=== PATIENT | female | born 1965 | race Caucasian/White ===

== ENCOUNTER → 2017-10-18 21:41 | Outpatient (CLI) | payer BC, SELFPAY ==
--- NOTE | 2017-10-18 21:52 | RAD_ITS ---
STUDY: X-RAY CHEST REASON FOR EXAM: Female, 52 years old. History of pneumothorax. History of lung nodules. TECHNIQUE: PA and lateral views of the chest. COMPARISON: 01/17/2016. FINDINGS: There are hypoventilatory changes. There again are prominent interstitial markings in the lower lungs essentially unchanged since prior examination. No new infiltrate is seen. There is no demonstrated pleural abnormality. Normal size heart. Normal mediastinum and [place]. Normal visualized pulmonary arteries. There is mild atherosclerotic tortuosity of the aortic arch and descending thoracic aorta. Normal visualized thoracic spine. Normal visualized ribs, clavicles, and shoulders. There is no demonstrated abnormality of the visualized soft tissue structures of the upper abdomen. RAD/Chest PA and Lateral IMPRESSION: Prominent interstitial markings appear to be chronic. No new infiltrate is seen. Electronically Signed: Duglas Dominique MD at 15:18 EST Tel , Service support ,
== END ==
PROVIDERS: Family Provider Family Medicine; PCP Family Medicine; Visit Provider Internal Medicine Hematology & Oncology
DX: J93.9 Pneumothorax, unspecified (principal)
CPT/HCPCS: 71046

== ENCOUNTER → 2017-10-29 10:30 | Outpatient (CLI) | payer BC, SELFPAY ==
--- NOTE | 2017-10-29 10:42 | CT_ITS ---
STUDY: CT CHEST WITH CONTRAST REASON FOR EXAM: Female, 52 years old. The patient has a history of colon cancer. RADIATION DOSAGE (If Supplied By Facility): CTDIvol = ( 14.17 ) mGy, DLP = ( 345.76 ) mGycm TECHNIQUE: Transaxial imaging was performed following intravenous administration of 100 ml of Isovue 300 contrast material. Multiplanar coronal and sagittal images were reformatted. Individualized dose optimization techniques were used for this CT. COMPARISON: None. FINDINGS: A right-sided portacatheter is seen. There is a 8.3 mm noncalcified nodule in the lateral peripheral aspect of the right upper lobe. There is also evidence of a 4.6 mm noncalcified nodule seen in the superior segment of the right lower lobe as seen on axial image #58. There is a 4.6 mm noncalcified nodule in the anterior aspect of the right upper lobe as seen on axial image #59. 7.3 mm noncalcified nodule in the posterior right lung apex as well as a 3.9 mm noncalcified nodule in the anterior right apex as seen on axial image #18. Mild degree of increased linear markings at the lung bases suggestive of a linear scarring and/or atelectasis. There is no demonstrated pleural abnormality. Normal heart and pericardium. Normal mediastinum. Normal hilar regions. Normal enhanced pulmonary arteries. Normal aorta arch and descending thoracic aorta. There are mild degenerative changes of the thoracic spine. Fatty infiltration of the liver. Small gallstones along the dependent portion of the gallbladder lumen. CT/Chest WITH Contrast IMPRESSION: Multiple noncalcified right pulmonary nodules. Electronically Signed: Tim Boss MD at 12:17 EDT Tel [phone], Service support ,
== END ==
PROVIDERS: Family Provider Family Medicine; PCP Family Medicine; Visit Provider Internal Medicine Hematology & Oncology
DX: C18.2 Malignant neoplasm of ascending colon (principal); C77.9 Secondary and unspecified malignant neoplasm of lymph node, unspecified; C78.00 Secondary malignant neoplasm of unspecified lung
CPT/HCPCS: 71260; Q9967

== ENCOUNTER 2017-12-23 14:54 | Observation (INO) | payer BC, SELFPAY ==
[2017-12-23 14:56] VITALS: BP 159/96; PULSE 103; RESP 18; TEMP 36.6; O2SAT 98; BMI 28.5
--- NOTE | 2017-12-23 15:05 | CT_ITS ---
STUDY: CT ABDOMEN AND PELVIS WITHOUT CONTRAST REASON FOR EXAM: Female, 52 years old. Right flank pain RADIATION DOSAGE (If Supplied By Facility): CTDIvol = ( 8.19 ) mGy, DLP = ( 411.18 ) mGycm TECHNIQUE: Transaxial images were obtained from the dome of the diaphragm to the symphysis pubis without oral contrast, and without intravenous contrast. Sagittal and coronal images were reconstructed. Individualized dose optimization techniques were used for this CT. COMPARISON: 10/07/2017 FINDINGS: Evaluation of the abdominal viscera is limited in the absence of intravenous contrast. The visualized lung bases are clear. The visualized portions of the heart and pericardium are within normal limits. There are small calcified gallstones present. The liver is low in density, consistent with fatty infiltration. The spleen is normal in size. The pancreas demonstrates an unremarkable unenhanced appearance. The adrenal glands are within normal limits. There are no left-sided stones. There is no left-sided hydronephrosis. There is a stable 2.2 x 1.5 cm stone at the right ureteropelvic junction with stable right hydronephrosis. There are stable additional subcentimeter stones in the collecting system of the right kidney. There are no stones in the right ureter. Normal visualized stomach. There is no bowel obstruction or inflammation. The patient is status post right hemicolectomy. The aorta is normal in caliber. There is no abdominal or pelvic free air, free fluid, fluid collection or lymphadenopathy. There are no destructive osseous lesions. CT/Abdomen/Pelvis without Cont IMPRESSION: Stable 2.2 x 1.5 cm stone at the right ureteropelvic junction with stable mild right hydronephrosis. Stable subcentimeter nonobstructing right collecting system stones. No right ureteral stones. No left-sided stones. No left-sided hydronephrosis. Fatty liver. Gallstones. Electronically Signed: Mark Gant, at 16:18 EDT Tel , Service support ,
--- NOTE | 2017-12-23 15:05 | ED.VISSUMM ---
- ER Visit Summary Date of Service: 12/23/17 Chief Complaint: Right flank pain History of Present Illness: The patient is a 52 F presents to the emergency department with right-sided flank pain. Patient has a history of recurrent kidney stone. 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 She is currently undergoing chemotherapy with Dr. Nieto. Her last treatment was Saturday of last week. She has not had fever or chills. She states that the pain started suddenly this morning. It is in the right flank and radiates to her right lower quadrant. She has had a difficult time urinating. She has had multiple bouts of vomiting. She states this feels very similar to her stones before. She does not think she has ever required stenting. She has had no other change in medications recently. Physical Examination: Vital signs reviewed General: Well-nourished, well-developed Head: Normocephalic, atraumatic Eyes: Pupils equal and reactive, extraocular muscles intact Neck, supple, no lymphadenopathy Heart: Regular rate and rhythm Respiratory: No distress, clear bilaterally Abdomen: Soft, nontender, nondistended, no peritoneal signs Back: Nontender Extremities: Nontender, no edema, no cords Skin: Normal color no rash Neuro: Alert and oriented, no focal or lateralizing deficits Test Results: [] Emergency Department Course and Treatment: The patient presents with signs and symptoms of urolithiasis. Her port was accessed. She was given fluids, Toradol, morphine. She had complete relief of her pain. Screening labs do show a mild leukopenia, but she is not neutropenic to the point of worry for neutropenic fever. Patient underwent CT which does show a large stone with mild hydro-. Her urine is also infected. I did discuss plan of care with Dr. Tinsley. He is very hesitant to treat this outpatient given the patient's immunosuppression on chemotherapy with evidence of infected stone. Patient will be started on IV antibiotics. She will be admitted, made n.p.o. overnight, and he is going to attempt to set her up for stent placement tomorrow. Patient will be discussed with the hospitalist for admission. Treatment Plan: [] Disposition: Admission Impression: 1. Obstructing urolithiasis with urinary tract infection 2. History of immunosuppression on chemotherapy This note was generated with [employer] software. It may contain incorrect words, spelling, and punctuation that were not noted in review of the chart prior to signing ED Disposition - Plan for ED Patient: Chief Complaint: Flank Pain Referrals: Jessa Chaudhry MD [Primary Care Provider] -
[2017-12-23] MEDS: 0.9% Normal Saline 1,000 ML 250 ML IV (15:35)
[2017-12-23] MEDS: Ondansetron 4 MG/2 ML Vial IV (15:35)
[2017-12-23] MEDS: Morphine 4 MG/ML Syringe IV ×2 (15:35→22:35)
[2017-12-23] MEDS: Ketorolac 30 MG/ML Syringe IV (15:35)
[2017-12-23 15:47] LABS: Absolute Lymphocyte Count 1.12 X10^3/ul (0.83-4.51); Absolute Neutrophil Count 0.8 X10^3/uL (2.0-7.7); Basophil# 0.02 X10^3/uL; Basophil% 0.9 % (0-1); Eosinophil# 0.03 X10^3/uL; Eosinophils% 1.4 % (0-5); Hematocrit 45.2 % (37-47); Hemoglobin 15.1 g/dl (12.0-15.0); Lymphocyte # 1.12 X10^3/ul (4.0); Lymphocyte % 51.6 % (19-41); Mean Corp Hgb Conc 33.4 g/gl (32-36); Mean Corpuscular Hgb 30.9 pg (27.0-32.0); Mean Corpuscular Volume 92.4 fL (81-99); Mean Platelet Vol. 10.5 fl (6.2-12.0); Monocyte# 0.18 X10^3/uL; Monocyte% 8.3 % (0-10); Neutrophil # 0.82 X10^3/uL (2.7-7.7); Neutrophil % 37.8 % (47-70); Platelet Count 114 K/mm3 (150-450); RBC Distribution Width CV 15.5 % (11.6-14.6); RBC Distribution Width SD 50.5 fl (35.1-43.9); Red Blood Count 4.89 M/mm3 (4.2-5.4); White Blood Count 2.2 K/mm3 (4.4-11.0)
[2017-12-23 15:49] LABS: POSITIVE COUNT NO; POSITIVE MORPHOLOGY NO
[2017-12-23 15:50] LABS: Differential Indicated SCAN CRITERIA MET; POSITIVE DIFFERENTIAL YES
[2017-12-23 15:53] LABS: Anion Gap 7 (5-15); BUN 23 mg/dL (7-18); BUN/Creat Ratio 24.8 RATIO (10-20); Calcium,Total 8.6 mg/dL (8.5-10.1); Chloride 107 mmol/L (98-107); Creatinine, Serum 0.93 mg/dL (0.55-1.02); EST Glomerular Filtration Rate 67 mL/min (>60); Est Glom Filt Rate - Afr Amer 81 mL/min (>60); Estimated Creatinine Clearance 52.18 ml/min; Glucose 139 mg/dL (74-106); Potassium 3.8 mmol/L (3.5-5.1); Sodium Level 141 mmol/L (136-145)
[2017-12-23 16:16] LABS: Anisocytosis RARE; Platelet Estimate SLT DEC (ADEQ)
[2017-12-23 16:17] LABS: Macrocytosis RARE
[2017-12-23 16:41] LABS: Color, Urine Amber (Yellow); Glucose, Dipstick Normal (Normal); Ketone-Dipstick 15 mg/dl (Negative); Leukocyte Esterase-Dipstick 500 /ul (Negative); Nitrite-Dipstick Positive (Negative); Occult Blood-Urine 250 /ul (Negative); Protein-Dipstick 500 mg/dl (Negative); Specific Gravity, Urine 1.025 (1.002-1.030); Urine Clarity Cloudy (Clear); Urine Urobilinogen 4 mg/dl (Normal)
[2017-12-23 16:52] LABS: Urine Bilirubin Dipstick 3 mg/dL (Negative)
[2017-12-23 16:54] LABS: Mucous, Urine 4+ /hpf (<or=2+); Red Blood Cells-Urine 50-100 SEEN /hpf (0-5); White Blood Cells 50-100 SEEN /hpf (0-5)
[2017-12-23 16:56] LABS: Bacteria 2+ /hpf (None Seen); Squamous Epithelial Cells - UA 5-10 SEEN /hpf (5-10); Transitional Epithelial - Ur 0-5 SEEN /hpf (0-5)
--- NOTE | 2017-12-23 17:04 | ED.RN ---
DR OLMAN JASMINE FOR DR ESPAÑA
[2017-12-23 17:05] VITALS: RESP 16
[2017-12-23] MEDS: Ceftriaxone 1 GM/50 ML BAG IV (17:12)
[2017-12-23 18:05] VITALS: BP 141/88; PULSE 95; RESP 16; TEMP 36.7; O2SAT 97
[2017-12-23 18:14] VITALS: BMI 28.6
--- NOTE | 2017-12-23 18:23 | PCM.HP.STD ---
Problem List (1) Ureteral stone with hydronephrosis Status: Acute (2) UTI (urinary tract infection) Status: Acute (3) Malignant neoplasm of right colon Status: Chronic (4) Nephrolithiasis Status: Chronic History of Present Illness Date of Admission: 12/23/17 Chief Complaint: abominal pain The patient is a 52 year old F who was in her normal state of health today up until about 8 AM. Patient experienced acute right flank and back tenderness. Patient has had bouts like this before related with some kidney stones but usually resolve spontaneously but this was much worse. Patient presented to the emergency room and underwent a CAT scan. CAT scan showed a 2.2 x 1.5 cm stone at the right UPJ with stable mild right hydronephrosis. Also stable subcentimeter nonobstructing right renal collecting system stones. Patient received Toradol and morphine and her pain is much improved at this time. Patient also had an abnormal urinalysis concerning for urinary tract infection and was started on Rocephin. [] Past Medical History Past Medical History (Chronic Problems): Chronic Problems (Last Reviewed 12/17/17 @ 08:56 by Valery Lauren) Malignant neoplasm of right colon (Chronic) Regional lymph node metastasis present (Chronic) Lung metastases (Chronic) Nephrolithiasis (Chronic) Anxiety (Chronic) Obesity (BMI 30.0-34.9) (Chronic) Allergies No Known Allergies Allergy (Verified 12/23/17 14:56) Home Medications: Ambulatory Orders Medication Instructions Recorded Ibuprofen [Advil] 400 mg PO UD PRN 10/17/17 Lorazepam [Ativan] 0.5 mg PO DAILY PRN PRN 10/17/17 Lidocaine/Prilocaine HCl [Emla 1 applicatio TOPICAL X1 PRN #1 tube 10/29/17 Cream W/Tegaderm] Prochlorperazine Maleate 10 mg PO Q6H PRN PRN 10 Days #30 10/29/17 tab Ondansetron HCl [Zofran] 4 mg PO Q8H PRN PRN 10 Days #30 tab 11/21/17 Surgical History: - - c/s, colon resection, port. 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 Denies: Dysuria Musculoskeletal: Denies: Joint Pain, Joint Tenderness Skin: Denies: Rash, Wounds Neurological: Denies: Numbness, Tingling, Focal weakness Psychiatric: Denies: Anxiety, Depression, Homicidal Ideations, Suicidal Ideations Hematologic/ Lymphatic: Denies: Easy Bruising, Easy Bleeding, Hx of blood clot VTE Information - Inpt Only VTE Present on Admission: No VTE Pharm Prophylaxis ordered?: Yes Patient Problems: Active and Suspected Problems (Last Reviewed 12/17/17 @ 08:56 by Valery Lauren) Ureteral stone with hydronephrosis (Acute) UTI (urinary tract infection) (Acute) - Physical Exam General: Alert, Cooperative, No apparent distress HEENT: Atraumatic, Normocephalic Neck: No Nodes, Thyroid Normal Size and Texture Lungs: Clear to auscultation, Normal air movement, No rhonchi, No wheeze Cardiovascular: Regular rate, Regular Rhythm, Normal S1, Normal S2, No murmurs Abdomen: Bowel Sounds Present, Soft, Non Tender, Non-Distended, No Hepato-splenomegaly, - - no CVA tenderness. Extremities: No edema, No Calf Tenderness Skin: No rashes, No breakdown Psych/Mental Status: Normal Affect, Appropriate Vital Signs Temp Pulse Resp BP Pulse Ox 36.7 C 95 16 141/88 H 97 12/23/17 18:05 12/23/17 18:05 12/23/17 18:05 12/23/17 18:05 12/23/17 18:05 Oxygen Delivery Method Room Air Weight: 68.6 kg Body Mass Index (BMI) 28.5 Laboratory Tests Past 24 Hrs 12/23/17 12/23/17 12/23/17 15:32 15:32 16:30 WBC 2.2 L RBC 4.89 Hgb 15.1 H Hct 45.2 MCV 92.4 MCH 30.9 MCHC 33.4 RDW 15.5 H RDW Differential 50.5 H Plt Count 114 L MPV 10.5 Immature Gran % (Auto) 0.000 Neut % (Auto) 37.8 L Lymph % (Auto) 51.6 H [place] % (Auto) 8.3 Eos % (Auto) 1.4 Baso % (Auto) 0.9 Absolute Neuts (auto) 0.8 L Absolute Lymphs (auto) 1.12 Total Counted Not Reportable Differential Comment SEE COMMENT Diff Path Review May foll Platelet Estimate SLT DEC Anisocytosis RARE Macrocytosis RARE Sodium 141 Potassium 3.8 Chloride 107 Carbon Dioxide 27.0 Anion Gap 7 BUN 23 H Creatinine 0.93 Estim Creat Clear Calc 52.18 Est GFR (MDRD) Af Amer 81 Est GFR (MDRD) Non-Af 67 BUN/Creatinine Ratio 24.8 H Glucose 139 H Calcium 8.6 Urine Color Brenda Urine Clarity Cloudy Urine pH 5.0 Ur Specific [place] 1.025 Urine Protein 500 H Urine Glucose (UA) Normal Urine Ketones 15 H Urine Occult Blood 250 H Urine Nitrite Positive H Urine Bilirubin 3 H Urine Urobilinogen 4 H Ur Leukocyte Esterase 500 H Urine RBC 50-100 SEEN Urine WBC 50-100 SEEN Ur Squamous Epith Cells 5-10 SEEN Ur Transition Epith Cell 0-5 SEEN Urine Bacteria 2+ Urine Mucus 4+ Assessment/Plan Active and Suspected Problems (Last Reviewed 12/17/17 @ 08:56 by Valery Lauren) Ureteral stone with hydronephrosis (Acute) UTI (urinary tract infection) (Acute) 1. Right ureteral pelvic junction stone Measures 2.2 x 1.5 cm Urology has been contacted and plan is for the patient to have a lithotripsy performed on the . pain control in the meantime 2. UTI Continue with Rocephin Follow-up urine culture 3. DVT prophylaxis with Lovenox 4. Stage IV colon cancer With lung metastasis Patient to follow-up with oncology as outpatient. Discussed with the patient's at bedside. Anticipate short hospitalization. Patient will be put under observation primarily for the kidney stone. Code Visit OBSV E&M: 18321 Initial observation care L2
--- NOTE | 2017-12-23 18:29 | HP.PCM_ITS ---
Problem List (1) Ureteral stone with hydronephrosis Status: Acute (2) UTI (urinary tract infection) Status: Acute (3) Malignant neoplasm of right colon Status: Chronic (4) Nephrolithiasis Status: Chronic History of Present Illness Date of Admission: 12/23/17 Chief Complaint: abominal pain The patient is a 52 year old F who was in her normal state of health today up until about 8 AM. Patient experienced acute right flank and back tenderness. Patient has had bouts like this before related with some kidney stones but usually resolve spontaneously but this was much worse. Patient presented to the emergency room and underwent a CAT scan. CAT scan showed a 2.2 x 1.5 cm stone at the right UPJ with stable mild right hydronephrosis. Also stable subcentimeter nonobstructing right renal collecting system stones. Patient received Toradol and morphine and her pain is much improved at this time. Patient also had an abnormal urinalysis concerning for urinary tract infection and was started on Rocephin. [] Past Medical History Past Medical History (Chronic Problems): Chronic Problems (Last Reviewed 12/17/17 @ 08:56 by Valery Lauren) Malignant neoplasm of right colon (Chronic) Regional lymph node metastasis present (Chronic) Lung metastases (Chronic) Nephrolithiasis (Chronic) Anxiety (Chronic) Obesity (BMI 30.0-34.9) (Chronic) Allergies No Known Allergies Allergy (Verified 12/23/17 14:56) Home Medications: Ambulatory Orders Medication Instructions Recorded Ibuprofen [Advil] 400 mg PO UD PRN 10/17/17 Lorazepam [Ativan] 0.5 mg PO DAILY PRN PRN 10/17/17 Lidocaine/Prilocaine HCl [Emla 1 applicatio TOPICAL X1 PRN #1 tube 10/29/17 Cream W/Tegaderm] Prochlorperazine Maleate 10 mg PO Q6H PRN PRN 10 Days #30 10/29/17 tab Ondansetron HCl [Zofran] 4 mg PO Q8H PRN PRN 10 Days #30 tab 11/21/17 Surgical History: - - c/s, colon resection, port. 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 Denies: Dysuria Musculoskeletal: Denies: Joint Pain, Joint Tenderness Skin: Denies: Rash, Wounds Neurological: Denies: Numbness, Tingling, Focal weakness Psychiatric: Denies: Anxiety, Depression, Homicidal Ideations, Suicidal Ideations Hematologic/ Lymphatic: Denies: Easy Bruising, Easy Bleeding, Hx of blood clot VTE Information - Inpt Only VTE Present on Admission: No VTE Pharm Prophylaxis ordered?: Yes Patient Problems: Active and Suspected Problems (Last Reviewed 12/17/17 @ 08:56 by Valery Lauren) Ureteral stone with hydronephrosis (Acute) UTI (urinary tract infection) (Acute) - Physical Exam General: Alert, Cooperative, No apparent distress HEENT: Atraumatic, Normocephalic Neck: No Nodes, Thyroid Normal Size and Texture Lungs: Clear to auscultation, Normal air movement, No rhonchi, No wheeze Cardiovascular: Regular rate, Regular Rhythm, Normal S1, Normal S2, No murmurs Abdomen: Bowel Sounds Present, Soft, Non Tender, Non-Distended, No Hepato- splenomegaly, - - no CVA tenderness. Extremities: No edema, No Calf Tenderness Skin: No rashes, No breakdown Psych/Mental Status: Normal Affect, Appropriate Vital Signs Temp Pulse Resp BP Pulse Ox 36.7 C 95 16 141/88 H 97 12/23/17 18:05 12/23/17 18:05 12/23/17 18:05 12/23/17 18:05 12/23/17 18:05 Oxygen Delivery Method Room Air Weight: 68.6 kg Body Mass Index (BMI) 28.5 Laboratory Tests Past 24 Hrs 12/23/17 12/23/17 12/23/17 15:32 15:32 16:30 WBC 2.2 L RBC 4.89 Hgb 15.1 H Hct 45.2 MCV 92.4 MCH 30.9 MCHC 33.4 RDW 15.5 H RDW Differential 50.5 H Plt Count 114 L MPV 10.5 Immature Gran % (Auto) 0.000 Neut % (Auto) 37.8 L Lymph % (Auto) 51.6 H [place] % (Auto) 8.3 Eos % (Auto) 1.4 Baso % (Auto) 0.9 Absolute Neuts (auto) 0.8 L Absolute Lymphs (auto) 1.12 Total Counted Not Reportable Differential Comment SEE COMMENT Diff Path Review May foll Platelet Estimate SLT DEC Anisocytosis RARE Macrocytosis RARE Sodium 141 Potassium 3.8 Chloride 107 Carbon Dioxide 27.0 Anion Gap 7 BUN 23 H Creatinine 0.93 Estim Creat Clear Calc 52.18 Est GFR (MDRD) Af Amer 81 Est GFR (MDRD) Non-Af 67 BUN/Creatinine Ratio 24.8 H Glucose 139 H Calcium 8.6 Urine Color Brenda Urine Clarity Cloudy Urine pH 5.0 Ur Specific [place] 1.025 Urine Protein 500 H Urine Glucose (UA) Normal Urine Ketones 15 H Urine Occult Blood 250 H Urine Nitrite Positive H Urine Bilirubin 3 H Urine Urobilinogen 4 H Ur Leukocyte Esterase 500 H Urine RBC 50-100 SEEN Urine WBC 50-100 SEEN Ur Squamous Epith Cells 5-10 SEEN Ur Transition Epith Cell 0-5 SEEN Urine Bacteria 2+ Urine Mucus 4+ Assessment/Plan Active and Suspected Problems (Last Reviewed 12/17/17 @ 08:56 by Valery Lauren) Ureteral stone with hydronephrosis (Acute) UTI (urinary tract infection) (Acute) 1. Right ureteral pelvic junction stone * Measures 2.2 x 1.5 cm * Urology has been contacted and plan is for the patient to have a lithotripsy performed on the . * pain control in the meantime 2. UTI * Continue with Rocephin * Follow-up urine culture 3. DVT prophylaxis with Lovenox 4. Stage IV colon cancer * With lung metastasis * Patient to follow-up with oncology as outpatient. Discussed with the patient's at bedside. Anticipate short hospitalization. Patient will be put under observation primarily for the kidney stone. Code Visit OBSV E&M: 55087 Initial observation care L2
[2017-12-23 18:50] VITALS: BMI 28.8
[2017-12-23] MEDS: 0.9% Normal Saline 1,000 ML 100 ML IV (19:28)
[2017-12-23] MEDS: Tamsulosin HCl 0.4 MG Capsule 0.8 MG PO (19:29)
[2017-12-23 21:00] VITALS: BP 122/74; PULSE 75; RESP 16; TEMP 36.4; O2SAT 97
[2017-12-24] VITALS (9 sets, daily range): BP systolic 102–135; BP diastolic 65–75; PULSE 57–78; RESP 16–18; TEMP 36.4–36.8; O2SAT 89–98; BMI 28.8
[2017-12-24] MEDS: 0.9% Normal Saline 1,000 ML 100 ML IV (03:04)
[2017-12-24 05:48] LABS: Absolute Lymphocyte Count 1.08 X10^3/ul (0.83-4.51); Absolute Neutrophil Count 1.1 X10^3/uL (2.0-7.7); Basophil# 0.02 X10^3/uL; Basophil% 0.8 % (0-1); Eosinophil# 0.06 X10^3/uL; Eosinophils% 2.5 % (0-5); Hematocrit 40.5 % (37-47); Hemoglobin 13.3 g/dl (12.0-15.0); Lymphocyte # 1.08 X10^3/ul (4.0); Lymphocyte % 45.4 % (19-41); Mean Corp Hgb Conc 32.8 g/gl (32-36); Mean Corpuscular Hgb 30.9 pg (27.0-32.0); Mean Corpuscular Volume 94.2 fL (81-99); Mean Platelet Vol. 10.6 fl (6.2-12.0); Monocyte# 0.15 X10^3/uL; Monocyte% 6.3 % (0-10); Neutrophil # 1.06 X10^3/uL (2.7-7.7); Neutrophil % 44.6 % (47-70); Platelet Count 101 K/mm3 (150-450); RBC Distribution Width CV 15.8 % (11.6-14.6); RBC Distribution Width SD 52.2 fl (35.1-43.9); White Blood Count 2.4 K/mm3 (4.4-11.0)
[2017-12-24 05:51] LABS: POSITIVE COUNT NO; POSITIVE DIFFERENTIAL NO; POSITIVE MORPHOLOGY NO
--- NOTE | 2017-12-24 06:00 | EKG12_ITS ---
Test Reason : PRE-OP Blood Pressure : / mmHG Vent. Rate : 080 BPM Atrial Rate : 080 BPM P-R Int : 122 ms QRS Dur : 078 ms QT Int : 398 ms P-R-T Axes : 041 027 042 degrees QTc Int : 459 ms Normal sinus rhythm Normal ECG Confirmed by TOBIAS CHOPRA, HIGINIO ([id number]), graphics editor REY FR[place] ([id number]) on 12/26/2017 12:57:04 PM Referred By: Jessa Chaudhry Confirmed By:HIGINIO COLLADO MD
[2017-12-24 06:11] LABS: Anion Gap 7 (5-15); BUN 17 mg/dL (7-18); BUN/Creat Ratio 25.8 RATIO (10-20); Calcium,Total 7.2 mg/dL (8.5-10.1); Chloride 113 mmol/L (98-107); Creatinine, Serum 0.66 mg/dL (0.55-1.02); EST Glomerular Filtration Rate 99 mL/min (>60); Est Glom Filt Rate - Afr Amer 120 mL/min (>60); Estimated Creatinine Clearance 73.53 ml/min; Glucose 138 mg/dL (74-106); Potassium 3.5 mmol/L (3.5-5.1); Sodium Level 144 mmol/L (136-145)
--- NOTE | 2017-12-24 07:25 | PCM.CONS.U ---
Reason for Consult Date of Consultation: 12/24/17 Reason for Consultation: 2 cm right kidney stone and a urinary tract infection History of Present Illness: The patient is a 52 year old female with a history of colon cancer currently undergoing chemotherapy presented to the emergency room with right flank pain also appears to have a urinary tract infection. Currently she is comfortable but given the large stone and possible that the stone may be infectious stone plan to place a stent to clear the infection before we plan for shockwave lithotripsy. Today the patient was admitted for antibiotics will place a stent if she is clinically doing okay she may be able to go home and within 24 hours. Past Medical History Past Medical History (Chronic Problems): Chronic Problems (Last Reviewed 12/17/17 @ 08:56 by Valery Lauren) Malignant neoplasm of right colon (Chronic) Regional lymph node metastasis present (Chronic) Lung metastases (Chronic) Nephrolithiasis (Chronic) Anxiety (Chronic) Obesity (BMI 30.0-34.9) (Chronic) Allergies No Known Allergies Allergy (Verified 12/23/17 14:56) Home Medications: Ambulatory Orders Medication Instructions Recorded Ibuprofen [Advil] 400 mg PO UD PRN 10/17/17 Lorazepam [Ativan] 0.5 mg PO DAILY PRN PRN 10/17/17 Lidocaine/Prilocaine HCl [Emla 1 applicatio TOPICAL X1 PRN #1 tube 10/29/17 Cream W/Tegaderm] Prochlorperazine Maleate 10 mg PO Q6H PRN PRN 10 Days #30 10/29/17 tab Ondansetron HCl [Zofran] 4 mg PO Q8H PRN PRN 10 Days #30 tab 11/21/17 Surgical History: noncontributory, - - c/s, colon resection, port. 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 Lives: Spouse/ Significant Other Smoking Status: Current every day smoker Tobacco Use: Cigarettes - *Family History Maternal History Items: No pertinent history, - - No colon cancer Paternal History Items: Unknown Review of Systems Constitutional: Reports: Fever HEENT: Denies: Head Aches, Sinus Congestion, Sinus Drainage Cardiovascular: Denies: Chest Pain, Palpitations Respiratory: Denies: Cough, Shortness of breath at rest, Sputum production Gastrointestinal: Reports: Abdominal Pain Genitourinary: Reports: Dysuria Musculoskeletal: Denies: Joint Pain, Joint Tenderness Skin: Denies: Rash, Wounds Neurological: Denies: Numbness, Tingling, Focal weakness Psychiatric: Denies: Anxiety, Depression, Homicidal Ideations, Suicidal Ideations Hematologic/ Lymphatic: Denies: Easy Bruising, Easy Bleeding Physical Exam - Physical Exam Vital Signs Temp 98.0 F 12/24/17 03:00 Pulse 78 12/24/17 03:00 Resp 16 12/24/17 03:00 BP 118/74 12/24/17 03:00 Pulse Ox 94 12/24/17 03:00 Intake & Output 12/22/17 12/23/17 12/24/17 23:59 23:59 23:59 Intake Total 803 / 803 667 / 667 Output Total 100 / 100 100 / 100 Balance 703 / 703 567 / 567 Weight: 69.309 kg Intake: Oral 500 / 500 IV fluid/meds 303 / 303 667 / 667 Output: Urine 100 / 100 100 / 100 General: Alert, Oriented x3 HEENT: Atraumatic Oral: Moist Mucosa, No Gingival or Mucosal Lesions/ Ulcerations Neck: Supple Lungs: Normal air movement Cardiovascular: Regular rate, Regular Rhythm Abdomen: Bowel Sounds Present, Soft Rectal: Exam deferred Extremities: No clubbing, No cyanosis, No edema Skin: No rashes Musculoskeletal: No Tenderness to Palpation of Joints or Extremities Lymphatic: No Cervical, Supraclavicular, or Inguinal Adenopathy Neurological: Cranial nerves II-XII grossly intact Psych/Mental Status: Normal Affect, Appropriate Laboratory Tests Past 24 Hrs 12/24/17 12/24/17 05:25 05:25 WBC 2.4 L RBC 4.30 Hgb 13.3 Hct 40.5 MCV 94.2 MCH 30.9 MCHC 32.8 RDW 15.8 H RDW Differential 52.2 H Plt Count 101 L MPV 10.6 Immature Gran % (Auto) 0.400 Neut % (Auto) 44.6 L Lymph % (Auto) 45.4 H [place] % (Auto) 6.3 Eos % (Auto) 2.5 Baso % (Auto) 0.8 Absolute Neuts (auto) 1.1 L Absolute Lymphs (auto) 1.08 Total Counted Not Reportable Sodium 144 Potassium 3.5 Chloride 113 H Carbon Dioxide 24.0 Anion Gap 7 BUN 17 Creatinine 0.66 Estim Creat Clear Calc 73.53 Est GFR (MDRD) Af Amer 120 Est GFR (MDRD) Non-Af 99 BUN/Creatinine Ratio 25.8 H Glucose 138 H Calcium 7.2 L Assessment/Plan Active and Suspected Problems (Last Reviewed 12/17/17 @ 08:56 by Valery Lauren) Ureteral stone with hydronephrosis (Acute) UTI (urinary tract infection) (Acute) 2 cm right kidney stone plan for cystoscopy right stent placement clear her of the infection with antibiotics then we can plan for outpatient treatment of the stone. Will place a stent today if she is clinically doing okay prior to go home within 24 hours with antibiotics my office a call or for instructions and plan for the surgery.
--- NOTE | 2017-12-24 09:04 | PCM.PN.HOSP ---
Patient Problems: Active and Suspected Problems (Last Reviewed 12/17/17 @ 08:56 by Valery Lauren) Ureteral stone with hydronephrosis (Acute) UTI (urinary tract infection) (Acute) Subjective: Patient was seen and examined. Denies any fever or chills or flank pain. Vitals are stable. No acute events overnight. She is going for a stent at 11 AM. Vitals/I&O's: Vital Signs Temp Pulse Resp BP Pulse Ox 97.7 F L 72 18 113/70 95 12/24/17 08:03 12/24/17 08:03 12/24/17 08:03 12/24/17 08:03 12/24/17 08:03 Oxygen Delivery Method Room Air Weight: 69.309 kg Body Mass Index (BMI) 28.8 Intake and Output for Last 24 Hours 12/22/17 12/23/17 12/24/17 23:59 23:59 23:59 Intake Total 803 / 803 667 / 667 Output Total 100 / 100 100 / 100 Balance 703 / 703 567 / 567 General: Alert, Oriented x3, Cooperative, No apparent distress HEENT: Atraumatic, PERRLA, EOMI, Normocephalic Oral: Moist Mucosa Neck: Supple Lungs: Clear to auscultation, Normal air movement Cardiovascular: Regular rate, Regular Rhythm, Normal S1, Normal S2, No murmurs Abdomen: Bowel Sounds Present, Soft, Non Tender, Non-Distended, No Hepato-splenomegaly Extremities: No edema Skin: No rashes, No breakdown Musculoskeletal: No Tenderness to Palpation of Joints or Extremities Lymphatic: No Cervical, Supraclavicular, or Inguinal Adenopathy Neurological: Cranial nerves II-XII grossly intact, Neuro grossly intact Psych/Mental Status: Normal Affect, Appropriate Laboratory Results 12/24/17 05:25: WBC 2.4 L, RBC 4.30, Hgb 13.3, Hct 40.5, MCV 94.2, MCH 30.9, MCHC 32.8, RDW 15.8 H, RDW Differential 52.2 H, Plt Count 101 L, MPV 10.6, Immature Gran % (Auto) 0.400, Neut % (Auto) 44.6 L, Lymph % (Auto) 45.4 H, [place] % (Auto) 6.3, Eos % (Auto) 2.5, Baso % (Auto) 0.8, Absolute Neuts (auto) 1.1 L, Absolute Lymphs (auto) 1.08, Total Counted Not Reportable 12/24/17 05:25: Sodium 144, Potassium 3.5, Chloride 113 H, Carbon Dioxide 24.0, Anion Gap 7, BUN 17, Creatinine 0.66, Estim Creat Clear Calc 73.53, Est GFR (MDRD) Af Amer 120, Est GFR (MDRD) Non-Af 99, BUN/Creatinine Ratio 25.8 H, Glucose 138 H, Calcium 7.2 L Current Medications Acetaminophen (Tylenol) 650 mg PO Q6H PRN PRN PRN Reason: Mild Pain (scale 0-3)/T>100.7 Enoxaparin Sodium (Lovenox) 40 mg SC DAILY@1000 KAN Last Admin: 12/24/17 07:34 Dose: Not Given Heparin Sodium (Beef Lung) (Heparin 500 Unit/5 Ml (100/Ml)) 500 unit IV UD PRN PRN Reason: HEPARIN FLUSH Sodium Chloride () 1,000 mls @ 100 mls/hr IV .Q10H [facility] Last Admin: 12/24/17 03:04 Dose: 100 mls/hr Ceftriaxone Sodium (Rocephin) 1 gm in 50 mls @ 100 mls/hr IV Q24 [facility] Sodium Chloride () 250 mls @ 15 mls/hr IV .[id number] PRN PRN Reason: SALINE FLUSH Ketorolac Tromethamine (Toradol) 15 mg IV Q6H PRN PRN PRN Reason: PAIN Stop: 12/28/17 18:42 Lorazepam (Ativan) 0.5 mg PO DAILY PRN PRN PRN Reason: ANXIETY Magnesium Hydroxide (Milk Of Magnesia) 30 ml PO DAILY PRN PRN PRN Reason: Constipation Morphine Sulfate () 1 - 2 mg IV Q4H PRN PRN PRN Reason: Moderate Pain (pain scale 4-5) Last Admin: 12/23/17 22:35 Dose: 2 mg Nutritional Formula (Lactose Free) (Ensure Enlive) 120 ml PO 4X/DAY [facility] Last Admin: 12/24/17 07:34 Dose: Not Given Ondansetron HCl (Zofran) 4 mg IV Q8H PRN PRN PRN Reason: Nausea Ondansetron HCl (Zofran Odt) 4 mg PO Q8H PRN PRN PRN Reason: NAUSEA Prochlorperazine Maleate (Compazine Tablet) 10 mg PO Q6H PRN PRN PRN Reason: NAUSEA Sodium Chloride () 10 ml IV UD PRN PRN Reason: R PORT FLUSH Tamsulosin HCl (Flomax) 0.8 mg PO DAILY@1730 [facility] Last Admin: 12/23/17 19:29 Dose: 0.8 mg Medical Necessity - Tobacco Use Smoking Status: Current every day smoker Tobacco Use: Cigarettes Assessment/Plan Active and Suspected Problems (Last Reviewed 12/17/17 @ 08:56 by Valery Lauren) Ureteral stone with hydronephrosis (Acute) UTI (urinary tract infection) (Acute) 52-year-old female with past medical history of metastatic colon cancer, follows with oncology in the outpatient for chemotherapy, last had chemotherapy on Saturday admitted with right flank pain and found to have a 2 cm kidney stone. 1. Right ureteral pelvic junction stone, measuring 2.2 x 1.5 cm, patient will be having a ureteral stent placed today with possible lithotripsy in the outpatient, on IV ceftriaxone, pain control, IV fluids, follow-up on urology recommendations. 2. Acute complicated UTI secondary to right ureteropelvic junction stone with mild hydronephrosis, on IV ceftriaxone, urine cultures are pending, continue on IV ceftriaxone for a total of 7 days to clear the infection in the urine 3. Stage IV colon cancer lung metastasis, following up with oncology 4. DVT prophylaxis with Lovenox 5. Disposition: Possible dc tomorrow. Code Visit Inpatient E&M: 95769 [facility] Hosp L3
[2017-12-24] MEDS: Ceftriaxone 1 GM/50 ML BAG IV (10:21)
--- NOTE | 2017-12-24 10:45 | NURSING ---
report called to Helga in AC. pt completed second chlorahex bath
[2017-12-24 11:37] LABS: Pathologist Review Reviewed
--- NOTE | 2017-12-24 12:19 | PCM.DC.URO ---
Discharge Diet: Light diet - advance as tolerated Discharge Activity: No Restrictions Instructions: Ureteral Stents Allergies/Adverse Reactions: Allergies No Known Allergies Allergy (Verified 12/23/17 14:56) Medications to take at Discharge Ibuprofen [Advil] 400 mg PO UD PRN 10/17/17 Lorazepam [Ativan] 0.5 mg PO DAILY PRN PRN 10/17/17 Lidocaine/Prilocaine HCl [Emla Cream W/Tegaderm] 1 applicatio TOPICAL X1 PRN #1 tube 10/29/17 Prochlorperazine Maleate 10 mg PO Q6H PRN PRN 10 Days #30 tab 10/29/17 Ondansetron HCl [Zofran] 4 mg PO Q8H PRN PRN 10 Days #30 tab 11/21/17 Primary Care Physician: Jessa Chaudhry MD [Primary Care Provider] - Please Follow Up With: Will Tinsley MD When: call office to set up surgery.
[2017-12-24] MEDS: Lidocaine Jelly 2% 20 ML Syringe (URO-JET) 20 APPLIC (12:21)
--- NOTE | 2017-12-24 12:46 | PCM.OPRPT ---
Report of Operation Date of Procedure: 12/24/17 Pre-Operative Diagnosis: Right large renal calculi Post-Operative Diagnosis: same Surgery/Procedure Performed:: Cystoscopy and right stent placement, right retrograde pyelogram Description of Surgical Findings:: 52-year-old female taken back to the operating room after smooth induction of general anesthesia she was placed supine on the table the legs in dorsal lithotomy position, the urethra and vaginal area were prepped and draped in usual sterile fashion, went into the bladder with a 21 Taiwanese rigid cystourethroscope, cannulated the right ureteral orifice with a Glidewire advanced a wire up to the kidney could see the stone in the renal pelvis fairly large stone, I then performed a retrograde pyelogram over Pollack catheter, advanced the wire into the kidney which coiled, with the wire advanced a stent 6 Taiwanese by 24 cm stent stent coiled in the kidney and bladder properly pulled the wire and drained kidney some debris was then coming from the kidney. Patient's anesthetic was reversed and she is taken back to the PACU in good condition. My office will call her to get her set up for surgery to treat the stone. Type of Anesthesia:: General Drains: stent - Admit VTE Documentation VTE Present on Admission: No VTE Mechan Device Prophylaxis: SCD's VTE Pharm Prophylaxis ordered?: No
[2017-12-24] MEDS: 0.9% Normal Saline 1,000 ML 75 ML IV (13:28)
[2017-12-24] MEDS: Acetaminophen 325 MG Tablet 650 MG PO (13:29)
--- NOTE | 2017-12-24 16:15 | CHAPLAIN ---
Type of Pastoral Visit _x__ Initial Visit ___ Follow-up Visit ___ On-call Visit ___ General Patient Visit ___ Spiritual Assessment ___ Family Conference ___ Bereavement ___ Rapid Response ___ Code Blue ___ Other (describe below) Pastoral Care Referral From _x__ Patient ___ Family ___ Nurse ___ Physician ___ Lan Engineer ___ Microcomputer Technician ___ Other (describe below) Sacrament/Intervention ___ Active listening ___ Anointing ___ Hinduism ___ Bereavement ___ Communion ___ Marely exploration ___ ___ Life review _x__ Prayer ___ Reconciliation ___ Sacrament of Sick _x__ Supportive presence ___ Wedding ___ Other (describe below) Pastoral Comments spouse of patient was in the room and did most of the talking; pt was quiet but welcomed a prayer; spouse appeared to have 'nervous expressions verbally'; offered support to both; gave presence and calm words of affirmation
[2017-12-24] MEDS: Tamsulosin HCl 0.4 MG Capsule 0.8 MG PO (17:45)
--- NOTE | 2017-12-24 18:00 | RAD_ITS ---
STUDY: X-RAY - ABDOMEN/PELVIS REASON FOR EXAM: Female, 52 years old. Right ureteral stent TECHNIQUE: Single AP view of the abdomen / pelvis. COMPARISON: None. FINDINGS: Normal visualized lung bases. There is an unremarkable bowel gas pattern. There is a double-J ureteral stent present on the right. Multiple radiopaque nephroliths on the right measuring up to 2.3 cm. No radiodense ureterolithiasis. The visualized liver, spleen and kidneys are grossly normal in size and morphology. Normal soft tissue structures. Normal visualized osseous structures. RAD/Abdomen Single View IMPRESSION: Double-J ureteral stent on the right and multiple uroliths as above Electronically Signed: Terry Parks MD at 21:57 EDT , Service support ,
[2017-12-24] MEDS: Morphine 4 MG/ML Syringe IV (21:34)
[2017-12-25] MEDS: 0.9% Normal Saline 1,000 ML 75 ML IV (02:07)
[2017-12-25 02:15] VITALS: BP 132/79; PULSE 85; RESP 16; TEMP 36.8; O2SAT 95
[2017-12-25 06:14] LABS: Absolute Lymphocyte Count 1.27 X10^3/ul (0.83-4.51); Absolute Neutrophil Count 1.5 X10^3/uL (2.0-7.7); Basophil# 0.02 X10^3/uL; Basophil% 0.6 % (0-1); Eosinophil# 0.11 X10^3/uL; Eosinophils% 3.3 % (0-5); Hematocrit 39.7 % (37-47); Hemoglobin 12.9 g/dl (12.0-15.0); Lymphocyte # 1.27 X10^3/ul (4.0); Lymphocyte % 38.4 % (19-41); Mean Corp Hgb Conc 32.5 g/gl (32-36); Mean Corpuscular Hgb 30.4 pg (27.0-32.0); Mean Corpuscular Volume 93.4 fL (81-99); Mean Platelet Vol. 10.5 fl (6.2-12.0); Monocyte# 0.36 X10^3/uL; Monocyte% 10.9 % (0-10); Neutrophil # 1.54 X10^3/uL (2.7-7.7); Neutrophil % 46.5 % (47-70); Platelet Count 101 K/mm3 (150-450); RBC Distribution Width CV 15.8 % (11.6-14.6); RBC Distribution Width SD 52.8 fl (35.1-43.9); Red Blood Count 4.25 M/mm3 (4.2-5.4); White Blood Count 3.3 K/mm3 (4.4-11.0)
[2017-12-25 06:21] LABS: POSITIVE COUNT NO; POSITIVE DIFFERENTIAL NO; POSITIVE MORPHOLOGY NO
[2017-12-25 06:48] LABS: Anion Gap 7 (5-15); BUN 8 mg/dL (7-18); BUN/Creat Ratio 12.8 RATIO (10-20); Calcium,Total 7.5 mg/dL (8.5-10.1); Chloride 115 mmol/L (98-107); Creatinine, Serum 0.63 mg/dL (0.55-1.02); EST Glomerular Filtration Rate 105 mL/min (>60); Est Glom Filt Rate - Afr Amer 127 mL/min (>60); Estimated Creatinine Clearance 77.03 ml/min; Glucose 100 mg/dL (74-106); Potassium 3.7 mmol/L (3.5-5.1); Sodium Level 145 mmol/L (136-145)
--- NOTE | 2017-12-25 07:44 | PCM.DC ---
- Discharge Diagnoses Current Active Problems: Current Active and Chronic Problems (Last Reviewed 12/17/17 @ 08:56 by Valery Lauren) Ureteral stone with hydronephrosis (Acute) UTI (urinary tract infection) (Acute) Reason(s) for Visit for Discharge Instructions: Right flank pain You will use the following diet at home:: Regular Your food should be the consistency of: Regular Your liquids should be the consistency of: Regular/Thin Discharge Activity: No Restrictions Instructions: Ureteral Stents Additional Instructions: You are encouraged to keep yourself hydrated. Continue to be active. Complete your antibiotics. Let your doctor know or come to the ED if you have fever more than 101F or have worsening flank pain, or blood in your urine. Allergies/Adverse Reactions: Allergies No Known Allergies Allergy (Verified 12/23/17 14:56) Medications to take at Discharge Ibuprofen [Motrin] 400 mg PO UD PRN 10/17/17 Lorazepam [Ativan] 0.5 mg PO DAILY PRN PRN 10/17/17 Lidocaine/Prilocaine HCl [Emla Cream W/Tegaderm] 1 applicatio TOPICAL X1 PRN #1 tube 10/29/17 Prochlorperazine Maleate 10 mg PO Q6H PRN PRN 10 Days #30 tab 10/29/17 Ondansetron HCl [Zofran] 4 mg PO Q8H PRN PRN 10 Days #30 tab 11/21/17 Cefdinir 300 mg PO BID #10 cap 12/25/17 Tamsulosin HCl [Flomax] 0.8 mg PO DAILY@1730 #30 cap 12/25/17 The following prescriptions were given: Tamsulosin HCl [Flomax] 0.8 mg PO DAILY@1730 #30 cap Cefdinir 300 mg PO BID #10 cap Primary Care Physician: Jessa Chaudhry MD [Primary Care Provider] - Please follow up with your Primary Care Physician in: within 2 weeks Please Follow Up With: Will Tinsley MD When: call office to set up surgery. Please Follow Up With: Anne Nieto MD When: as scheduled
--- NOTE | 2017-12-25 08:09 | DS.PCM_ITS ---
Discharge Date and Diagnosis - Problem List Patient Problems: Active and Suspected Problems (Last Reviewed 12/17/17 @ 08:56 by Valery Lauren) Ureteral stone with hydronephrosis (Acute) UTI (urinary tract infection) (Acute) Date of Admission: 12/23/17 Date of Discharge: 12/25/17 - Primary Discharge Diagnosis Active and Suspected Problems (Last Reviewed 12/17/17 @ 08:56 by Valery Lauren) Ureteral stone with hydronephrosis (Acute) UTI (urinary tract infection) (Acute) - Secondary Discharge Diagnosis Chronic Problems (Last Reviewed 12/17/17 @ 08:56 by Valery Lauren) Malignant neoplasm of right colon (Chronic) Regional lymph node metastasis present (Chronic) Lung metastases (Chronic) Nephrolithiasis (Chronic) Anxiety (Chronic) Obesity (BMI 30.0-34.9) (Chronic) Hospital Course and Treatment Imaging Results: Clinical Impression(s) from Imaging Studies Abdomen/Pelvis CT 12/23/17 15:05 IMPRESSION: Stable 2.2 x 1.5 cm stone at the right ureteropelvic junction with stable mild right hydronephrosis. Stable subcentimeter nonobstructing right collecting system stones. No right ureteral stones. No left-sided stones. No left-sided hydronephrosis. Fatty liver. Gallstones. Electronically Signed: Mark Gant at 16:18 EDT Tel , Service support , KUB X-Ray 12/24/17 18:00 IMPRESSION: Double-J ureteral stent on the right and multiple uroliths as above Electronically Signed: Terry Parks MD at 21:57 EDT , Service support , Urology Operations: None Procedures: - - s/p right ureteric stent placement Summary of Care Provided: 52-year-old female with past medical history of metastatic colon cancer, follows with oncology in the outpatient for chemotherapy, admitted with right flank pain and found to have a 2 cm kidney stone. 1. Right ureteral pelvic junction stone with mild hydronephrosis, measuring 2.2 x 1.5 cm, status post right stent placement and right retrograde pyelogram with cystoscopy. Patient will be followed up with urology in the outpatient for stent removal and possible lithotripsy. 2. Acute complicated UTI secondary to right ureteropelvic junction stone, initially managed on IV ceftriaxone, urine cultures growing mixed organisms - gram positive and gram negative, believed to be contaminants, discharged on po cefdinir for 5 more days. 3. Pancytopenia related to recent chemotherapy, WBC count elevated to 3.3, absolute neutrophil count is 1500, managed initially on neutropenic precautions , would need to repeat CBC D in the outpatient within a week 4. Stage IV colon cancer lung metastasis, follow-up with oncology Discharge Diet: Light diet - advance as tolerated Discharge Activity: No Restrictions Home Medications: Medications to take at Discharge Ibuprofen [Motrin] 400 mg PO UD PRN 10/17/17 Lorazepam [Ativan] 0.5 mg PO DAILY PRN PRN 10/17/17 Lidocaine/Prilocaine HCl [Emla Cream W/Tegaderm] 1 applicatio TOPICAL X1 PRN #1 tube 10/29/17 Prochlorperazine Maleate 10 mg PO Q6H PRN PRN 10 Days #30 tab 10/29/17 Ondansetron HCl [Zofran] 4 mg PO Q8H PRN PRN 10 Days #30 tab 11/21/17 Cefdinir 300 mg PO BID #10 cap 12/25/17 Tamsulosin HCl [Flomax] 0.8 mg PO DAILY@1730 #30 cap 12/25/17 Following Prescrptions Were Given to Patient: Tamsulosin HCl [Flomax] 0.8 mg PO DAILY@1730 #30 cap Cefdinir 300 mg PO BID #10 cap Primary Care Physician: Jessa Chaudhry MD [Primary Care Provider] - Please follow up with your Primary Care Physician in: within 2 weeks Please Follow Up With: Will Tinsley MD When: call office to set up surgery. Please Follow Up With: Anne Nieto MD When: as scheduled Patient Instructions: Ureteral Stents Disposition: Home Minutes spent on discharge:: 40 Patient Condition:: Stable Medical Necessity - Tobacco Use Smoking Status: Current every day smoker Tobacco Use: Cigarettes Meaningful Use Info Meaningful Use Diagnoses (Choose all that apply): None applicable Code Visit Inpatient E&M: 54808 [facility] Hosp
[2017-12-25 09:17] VITALS: BP 135/75; PULSE 71; RESP 18; TEMP 35.8; O2SAT 97
== END 2017-12-25 09:22 | disposition home or self-care (01) ==
LOC: ED 15:46 → MS2 18:28
PROVIDERS: Urology; Emergency Provider Emergency Medicine; Family Provider Family Medicine; PCP Family Medicine; Visit Provider Internal Medicine
PROC: (CPT 52332; principal; 2017-12-24 07:20)
DX: N13.2 Hydronephrosis with renal and ureteral calculous obstruction (principal); N39.0 Urinary tract infection, site not specified; E66.9 Obesity, unspecified; F41.9 Anxiety disorder, unspecified; C18.2 Malignant neoplasm of ascending colon; C77.9 Secondary and unspecified malignant neoplasm of lymph node, unspecified; C78.00 Secondary malignant neoplasm of unspecified lung; F17.210 Nicotine dependence, cigarettes, uncomplicated; D61.810 Antineoplastic chemotherapy induced pancytopenia; T45.1X5A Adverse effect of antineoplastic and immunosuppressive drugs, initial encounter; Z68.28 Body mass index [BMI] 28.0-28.9, adult; Z71.3 Dietary counseling and surveillance; Z79.899 Other long term (current) drug therapy
CPT/HCPCS: 52332; 36591; 74018; 74176; 76000; 80048; 81001; 85025; 87086; 87088; 93005; 96361; 96365; 96366; 96375; 96376; 97802; 99218; 99281; 99406; J7030; J7120; A4216; C1769; C2617; G0378; J2405

== ENCOUNTER 2018-01-15 07:21 | Day surgery (SDC) | payer BC, SELFPAY ==
--- NOTE | 2018-01-15 07:21 | DT_ITS ---
This patient was seen during an EMR downtime January 13, 2018 - January 20, 2018. This patient may have a combination of paper and electronic documentation or all paper documentation. All documentation is viewable within the e-chart portion of [employer] for each patient visit.
--- NOTE | 2018-01-15 07:38 | RAD_ITS ---
STUDY: X-RAY - ABDOMEN/PELVIS REASON FOR EXAM: Female, 52 years old. Kidney stone. Preop exam TECHNIQUE: Single AP view of the abdomen / pelvis. COMPARISON: December 14, 2017 FINDINGS: Normal visualized lung bases. There is an unremarkable bowel gas pattern. There is no demonstrated free abdominal air. There is stable stent extending from the right renal pelvis to the urinary bladder. There are stable right renal calcifications measuring up to 2.6 cm. Normal visualized osseous structures. RAD/Abdomen Single View IMPRESSION: Stable right renal stones. Stable right renal stent. Electronically Signed: Jesus Manuel Barboza MD at 18:00 EDT , Service support ,
[2018-01-21 12:38] LABS: Hematocrit 43.9 % (37-47); Hemoglobin 14.6 g/dl (12.0-15.0); Red Blood Count 4.69 M/mm3 (4.2-5.4); White Blood Count 6.6 K/mm3 (4.4-11.0)
[2018-01-21 12:39] LABS: Mean Corp Hgb Conc 33.3 g/gl (32-36); Mean Corpuscular Hgb 31.1 pg (27.0-32.0); Mean Corpuscular Volume 93.6 fL (81-99); RBC Distribution Width CV 15.6 % (11.6-14.6); RBC Distribution Width SD 53.6 fl (35.1-43.9)
[2018-01-21 12:40] LABS: Mean Platelet Vol. 10.8 fl (6.2-12.0); Platelet Count 132 K/mm3 (150-450); Scan Indicated on CBC? Y/N NO
== END 2018-01-15 12:35 | disposition home or self-care (01) ==
LOC: SDC 01-16 11:30
PROVIDERS: Family Provider Family Medicine; PCP Family Medicine; Visit Provider Urology
PROC: (CPT 50590; principal; 2018-01-15 08:50)
DX: N13.2 Hydronephrosis with renal and ureteral calculous obstruction (principal); N39.0 Urinary tract infection, site not specified; C78.00 Secondary malignant neoplasm of unspecified lung; C18.9 Malignant neoplasm of colon, unspecified; C77.9 Secondary and unspecified malignant neoplasm of lymph node, unspecified; F41.9 Anxiety disorder, unspecified; E66.9 Obesity, unspecified; Z71.3 Dietary counseling and surveillance; Z79.899 Other long term (current) drug therapy; F17.210 Nicotine dependence, cigarettes, uncomplicated
CPT/HCPCS: 00873; 50590; 74018; 85027; J7120; A4216

== ENCOUNTER → 2018-01-22 08:04 | Outpatient (CLI) | payer BC, SELFPAY ==
--- NOTE | 2018-01-22 08:08 | RAD_ITS ---
STUDY: X-RAY - ABDOMEN/PELVIS REASON FOR EXAM: Female, 52 years old. Renal stones. Recent lithotripsy. Stent. TECHNIQUE: Single AP view of the abdomen / pelvis. COMPARISON: Single AP view of the abdomen and pelvis January 15, 2018. FINDINGS: Non-visualized lung bases. An anastomotic suture line is again seen in the medial right upper quadrant. There is an unremarkable bowel gas pattern. There is no demonstrated free abdominal air. Double-J right ureteral stent again identified, extending from the region of the renal pelvis to the latter. The amorphous calcification/stone surrounding the proximal retaining loop is no longer present. There are stone fragments in lower pole calyces. Calcified gallstones also again identified. The visualized liver and spleen are grossly normal in size and morphology. There is a stable calcified phlebolith in the left pelvis. Right-sided attempted sacralization of the fifth lumbar segment, minor degenerative changes of the lower lumbar spine, and degenerative arthroses of the bilateral sacroiliac joints again noted. RAD/Abdomen Single View IMPRESSION: 1. The amorphous calcification/stone seen about the proximal retaining loop of the indwelling right double-J ureteral stent is no longer present post lithotripsy. A few stone fragments are now seen in right lower pole calyces. 2. Anastomotic suture line again seen in the medial right upper quadrant. The bowel gas pattern is unremarkable. 3. Calcified gallstones again noted. Electronically Signed: Antonio Xie MD at 11:16 EDT , Service support ,
== END ==
PROVIDERS: Family Provider Family Medicine; PCP Family Medicine; Visit Provider Nurse Practitioner Adult Health
DX: N20.0 Calculus of kidney (principal)
CPT/HCPCS: 74018

== ENCOUNTER → 2018-01-30 14:51 | Outpatient (CLI) | payer BC, SELFPAY ==
--- NOTE | 2018-01-30 14:54 | RAD_ITS ---
STUDY: X-RAY - ABDOMEN/PELVIS REASON FOR EXAM: Female, 53 years old. Kidney stones TECHNIQUE: Single AP view of the abdomen / pelvis. COMPARISON: 01/22/2018 FINDINGS: Stable appearance of right ureteral stent. Overall, decreased stone burden in the region of the right renal shadow. No evidence of small bowel obstruction. There is no demonstrated free abdominal air. The visualized liver, spleen and kidneys are grossly normal in size and morphology. Normal soft tissue structures. There are diffuse degenerative changes of the visualized lumbar spine. RAD/Abdomen Single View IMPRESSION: As above Electronically Signed: Wilman King DO at 15:45 EDT Tel , Service support ,
== END ==
PROVIDERS: Family Provider Family Medicine; PCP Family Medicine; Visit Provider Urology
DX: N20.0 Calculus of kidney (principal)
CPT/HCPCS: 74018

== ENCOUNTER → 2018-02-06 14:52 | Outpatient (CLI) | payer BC, SELFPAY ==
--- NOTE | 2018-02-06 14:55 | RAD_ITS ---
STUDY: X-RAY - ABDOMEN/PELVIS REASON FOR EXAM: Female, 53 years old. Kidney stones TECHNIQUE: Two AP supine views of the abdomen and pelvis. COMPARISON: 01/30/2018 FINDINGS: There is an unremarkable bowel gas pattern. There is no demonstrated free abdominal air. The visualized liver, spleen and kidneys are grossly normal in size and morphology. A right ureteral stent is seen, unchanged from the prior study. Small calcifications project over the right kidney. There may be a tiny calcification adjacent to the ureteral stent at L5-S1. Normal visualized osseous structures. RAD/Abdomen Single View IMPRESSION: Right ureteral stent, with small right renal stones. Question small calculus along the proximal to mid right ureteral stent. Electronically Signed: Dallas Prince DO at 15:39 EDT Tel , Service support ,
== END ==
PROVIDERS: Family Provider Family Medicine; PCP Family Medicine; Visit Provider Urology
DX: N20.0 Calculus of kidney (principal)
CPT/HCPCS: 74018

== ENCOUNTER → 2018-02-14 12:36 | Outpatient (CLI) | payer BC, SELFPAY ==
[2018-02-14 13:57] LABS: HIV - WCH Non-Reactive (Nonreactive)
[2018-02-17 10:24] LABS: HEPATITIS B SURFACE AG Negative (Negative); Hep B Surface Antibodies Non Reactive (.); Hep C Antibodies <0.1 s/co ratio (0.0-0.9)
== END ==
PROVIDERS: Family Provider Family Medicine; PCP Family Medicine; Visit Provider Urology
DX: Z77.21 Contact with and (suspected) exposure to potentially hazardous body fluids (principal); W46.0XXA Contact with hypodermic needle, initial encounter
CPT/HCPCS: 86703; 86706; 86803; 87340

== ENCOUNTER → 2018-02-20 11:01 | Outpatient (CLI) | payer BC, SELFPAY ==
--- NOTE | 2018-02-20 11:05 | RAD_ITS ---
STUDY: X-RAY - ABDOMEN/PELVIS REASON FOR EXAM: Female, 53 years old. Flank pain, previous lithotripsy TECHNIQUE: Two AP supine views of the abdomen and pelvis. COMPARISON: 01/29/2018 FINDINGS: Stable appearance of right-sided JJ stent. Multiple calcific densities overlie the right renal shadow that have undergone lithotripsy. There is a subtle calcific density along the proximal third of the stent. No other calcific densities noted along the course of the stent. There is an unremarkable bowel gas pattern. There is no demonstrated free abdominal air. The visualized liver, spleen and kidneys are grossly normal in size and morphology. Normal soft tissue structures. Normal visualized osseous structures. RAD/Abdomen Single View IMPRESSION: Stable right nephrolithiasis Satisfactory position of the right-sided JJ stent. 2 mm calcific density projects along the proximal stent Electronically Signed: Antonio Roberts MD at 8:52 EDT , Service support ,
== END ==
PROVIDERS: Family Provider Family Medicine; PCP Family Medicine; Visit Provider Nurse Practitioner Adult Health
DX: N20.0 Calculus of kidney (principal)
CPT/HCPCS: 74018

== ENCOUNTER → 2018-03-10 14:10 | Outpatient (CLI) | payer BC, SELFPAY ==
--- NOTE | 2018-03-10 14:12 | CT_ITS ---
STUDY: CT CHEST WITH CONTRAST REASON FOR EXAM: Female, 53 years old. Colon cancer restaging RADIATION DOSAGE (If Supplied By Facility): CTDIvol = ( 12.54 ) mGy, DLP = ( 1101.74 ) mGycm TECHNIQUE: Transaxial imaging was performed following intravenous administration of 75 ml of Isovue 370 contrast material. Multiplanar coronal and sagittal images were reformatted. Individualized dose optimization techniques were used for this CT. COMPARISON: 10/29/2017. FINDINGS: There is a 9 mm pulmonary nodule right upper lung. There is a 7 mm pulmonary nodule right lower lung. No infiltrate. No effusion. 2 small apical pulmonary nodules measuring 4 and 6 mm. There is no demonstrated pleural abnormality. Normal heart and pericardium. There are multiple small lymph nodes within the mediastinum, which are normal in size and morphology most compatible with reactive lymph hyperplasia. Normal hilar regions. Normal enhanced pulmonary arteries. Normal aorta arch and descending thoracic aorta. Normal osseous structures. There is no demonstrated abnormality of the visualized upper abdomen. CT/Chest WITH Contrast IMPRESSION: Stable pulmonary nodules, the largest measuring 9 mm in the right upper lung. No new pulmonary nodules. Nonreactive mediastinal lymph nodes. Electronically Signed: Dale Castano DO at 23:58 EDT , Service support ,
--- NOTE | 2018-03-10 14:13 | CT_ITS ---
STUDY: CT ABDOMEN AND PELVIS WITH CONTRAST REASON FOR EXAM: Female, 53 years old. Restaging colon cancer RADIATION DOSAGE (If Supplied By Facility): CTDIvol = ( 12.54 ) mGy, DLP = ( 1101.74 ) mGycm TECHNIQUE: Transaxial images were obtained from the dome of the diaphragm to the symphysis pubis without oral contrast. 100 ml of Isovue 300 contrast was administered. Sagittal and coronal images were reconstructed. Individualized dose optimization techniques were used for this CT. COMPARISON: 12/23/2017. FINDINGS: The visualized lung bases are unremarkable. The visualized portions of the heart are within normal limits. Normal liver. There are multiple gallstones. Normal spleen. Normal pancreas. Normal bilateral adrenal glands. Nonobstructing 3 mm mid right renal stone. Normal left kidney. No hydronephrosis either kidney. Normal visualized stomach. Normal small intestine. Normal colon. There is non-visualization of the appendix. Normal abdominal aorta. Normal inferior vena cava. Stable small nonreactive retroperitoneal lymph nodes. Normal urinary bladder. Normal abdominal wall. Normal osseous structures. CT/Abdomen/Pelvis WITH Contrast IMPRESSION: Stable gallstones. No enhancing liver lesions. Nonobstructing 3 mm right renal stone. Electronically Signed: Dale Castano DO at 23:53 EDT , Service support ,
[2018-03-10 14:51] LABS: CREATININE FINGERSTICK 0.8 mg/dL (0.55-1.02)
== END ==
PROVIDERS: Family Provider Family Medicine; PCP Family Medicine; Visit Provider Internal Medicine Hematology & Oncology
DX: C18.2 Malignant neoplasm of ascending colon (principal); K80.80 Other cholelithiasis without obstruction; N20.0 Calculus of kidney; R91.8 Other nonspecific abnormal finding of lung field
CPT/HCPCS: 71260; 74177; Q9967; A4216

== ENCOUNTER → 2019-05-20 09:13 | Outpatient (CLI) | payer BC, SELFPAY ==
[2018-03-05 09:08] VITALS: BMI 23.6
[2019-06-08 09:44] LABS: Miscellaneous Lab Procedure 2 SEE PATH
== END ==
PROVIDERS: Family Provider Family Medicine; PCP Family Medicine
DX: C18.9 Malignant neoplasm of colon, unspecified (principal)